=== PATIENT | female | born 1975 | race American Indian/Alaskan Native ===

== ENCOUNTER 2020-02-16 09:03 | Emergency (ER) | payer SELFPAY ==
[2020-02-16 09:24] VITALS: BP 135/88
[2020-02-16] MEDS ORDERED: ACETAMINOPHEN 500 MG TAB PO ONE (10:49)
--- NOTE | 2020-02-16 10:51 | Emergency Department Report ---
Blank Doc - Documentation Documentation: [id number] female that presents with fever, body aches, cough, n/v, and SOB. This initial assessment/diagnostic orders/clinical plan/treatment(s) is/are subject to change based on patient's health status, clinical progression and re- assessment by fellow clinical providers in the ED. Further treatment and workup at subsequent clinical providers discretion. Patient/guardians urged not to elope from the ED as their condition may be serious if not clinically assessed and managed. Initial orders include: 1- Patient sent to [facility] for further evaluation and treatment 2- labs 3- CXR
--- NOTE | 2020-02-16 11:15 | XRay Report ---
CHEST 2 VIEWS INDICATION / CLINICAL INFORMATION: Cough, fever, chills, body aches, weakness, fatigue, nausea, vomiting and diarrhea for one week. COMPARISON: None available. FINDINGS: SUPPORT DEVICES: None. HEART / MEDIASTINUM: The heart size and pulmonary vasculature are normal. LUNGS / PLEURA: No significant pulmonary or pleural abnormality. No pneumothorax. ADDITIONAL FINDINGS: No significant additional findings. IMPRESSION: No acute findings. There is no evidence of pneumonia. Signer Name: Torrey Sagastume MD Signed: 02/16/2020 11:11 AM Workstation Name: [id number]
[2020-02-16 12:20] LABS: Basophils % (Auto) 0.6 % (0.0-1.8); Eosinophils % (Auto) 0.1 % (0.0-4.3); Hematocrit 46.6 % (30.3-42.9); Hemoglobin 15.5 gm/dl (10.1-14.3); Lymphocytes # (Auto) 1.3 K/mm3 (1.2-5.4); Lymphocytes % (Auto) 32.5 % (13.4-35.0); Mean Corpuscular HGB Conc 33 % (30-34); Mean Corpuscular Volume 93 fl (79-97); Monocytes # (Auto) 0.5 K/mm3 (0.0-0.8); Monocytes % (Auto) 11.9 % (0.0-7.3); Platelet Count 185 K/mm3 (140-440); Red Blood Count 5.02 M/mm3 (3.65-5.03); Red Cell Distribution Width 14.5 % (13.2-15.2)
[2020-02-16 12:30] LABS: BUN/Creatinine Ratio 9; Blood Urea Nitrogen 7 mg/dL (7-17); Calcium 9.3 mg/dL (8.4-10.2); Hemolysis Index 5
--- NOTE | 2020-02-16 14:22 | Emergency Department Report ---
- General Chief Complaint: Fever Stated Complaint: FEVER Time Seen by Provider: 02/16/20 10:48 Source: patient, family Mode of arrival: Ambulatory Limitations: No Limitations - History of Present Illness Initial Comments: Patient is a 44-year-old female presents emergency room with complaints of URI symptoms that began a week ago. She has associated fever, chills, mild occasional dry cough. She states initially she had vomiting and diarrhea but that has since improved. She states her symptoms have felt better after taking TheraFlu. She denies any known sick contact. She states that she did travel to [place]. She denies any chest pain or shortness of breath. She has a past medical history of seizure and hypertension. No allergies to medications. 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 Absent: respiratory distress, wheezes, rales, rhonchi, stridor, chest wall tenderness, accessory muscle use, decreased breath sounds, prolonged expiratory - Cardiovascular Cardiovascular Exam: Present: regular rate, normal rhythm, normal heart sounds. Absent: systolic murmur, diastolic murmur, rubs, gallop - Neurological Exam Neurological exam: Present: alert, oriented X3 - Psychiatric Psychiatric exam: Present: normal affect, normal mood - Skin Skin exam: Present: warm, dry, intact ED Course Vital Signs 02/16/20 02/16/20 02/16/20 09:07 10:50 10:55 Temperature 100.1 F H 100.9 F H Pulse Rate 105 H Respiratory 20 18 Rate Blood Pressure 135/88 O2 Sat by Pulse 97 Oximetry 02/16/20 14:26 Temperature 99.1 F Pulse Rate 79 Respiratory 16 Rate Blood Pressure O2 Sat by Pulse 100 Oximetry ED Medical Decision Making - Lab Data Result diagrams: 02/16/20 11:25 02/16/20 11:24 Lab Results 02/16/20 02/16/20 Range/Units 11:24 11:25 WBC 3.9 L (4.5-11.0) K/mm3 RBC 5.02 (3.65-5.03) M/mm3 Hgb 15.5 H (10.1-14.3) gm/dl Hct 46.6 H (30.3-42.9) % MCV 93 (79-97) fl MCH 31 (28-32) pg MCHC 33 (30-34) % RDW 14.5 (13.2-15.2) % Plt Count 185 (140-440) K/mm3 Lymph % (Auto) 32.5 (13.4-35.0) % Edwards % (Auto) 11.9 H (0.0-7.3) % Eos % (Auto) 0.1 (0.0-4.3) % Baso % (Auto) 0.6 (0.0-1.8) % Lymph # 1.3 (1.2-5.4) K/mm3 Edwards # 0.5 (0.0-0.8) K/mm3 Eos # 0.0 (0.0-0.4) K/mm3 Baso # 0.0 (0.0-0.1) K/mm3 Seg Neutrophils % 54.9 (40.0-70.0) % Seg Neutrophils # 2.2 (1.8-7.7) K/mm3 Sodium 137 (137-145) mmol/L Potassium 3.6 (3.6-5.0) mmol/L Chloride 93.3 L (98-107) mmol/L Carbon Dioxide 29 (22-30) mmol/L Anion Gap 18 mmol/L BUN 7 (7-17) mg/dL Creatinine 0.8 (0.7-1.2) mg/dL Estimated GFR > 60 ml/min BUN/Creatinine Ratio 9 % Glucose 112 H (65-100) mg/dL Calcium 9.3 (8.4-10.2) mg/dL - Radiology Data Radiology results: report reviewed CHEST 2 VIEWS INDICATION / CLINICAL INFORMATION: Cough, fever, chills, body aches, weakness, fatigue, nausea, vomiting and diarrhea for one week. COMPARISON: None available. FINDINGS: SUPPORT DEVICES: None. HEART / MEDIASTINUM: The heart size and pulmonary vasculature are normal. LUNGS / PLEURA: No significant pulmonary or pleural abnormality. No pneumothorax. ADDITIONAL FINDINGS: No significant additional findings. IMPRESSION: No acute findings. There is no evidence of pneumonia. Signer Name: Torrey Sagastume MD Signed: 02/16/2020 11:11 AM Workstation Name: [id number] Transcribed By: RT Dictated By: Torrey Sagastume MD Electronically Authenticated By: Torrey Sagastume MD Signed Date/Time: 02/16/20 1111 DD/ 1110 TD/TT: - Medical Decision Making Patient is a 44-year-old female presents emergency room with complaints of URI symptoms that began a week ago. She has associated fever, chills, mild occasional dry cough. She states initially she had vomiting and diarrhea but that has since improved. She states her symptoms have felt better after taking TheraFlu. She denies any known sick contact. She states that she did travel to [place]. She denies any chest pain or shortness of breath. She has a past medical history of seizure and hypertension. No allergies to medications. Initial vitals with fever elevated heart rate, patient given Tylenol and completely resolved. Labs are stable. Chest x-ray with no acute process. Ambulated by EMT and maintain sats of 100% on room air. Patient is presenting with URI symptoms during a COVID-19 pandemic, there is a possibility as patient is presenting with similar symptoms, she has no signs of infiltrates on x-ray, her labs are normal, she is not hypoxic, discussed in detail with patient very strict return precautions, discussed reexamination in 2 days, discussed self quarantine. Patient does not meet inpatient criteria or criteria for hospital COVID-19 testing. Advised pt Please increase your fluid intake over the next several days. May take Tylenol as needed for fever or body aches. May take xtjl-jac-cospguc cold symptom relief medication such as Mucinex or TheraFlu. Get plenty of rest. Follow-up with a primary care doctor for reexamination in 2-3 days. Return to emergency room immediately for any new or worsening symptom s including but not limited to difficulty breathing, shortness of breath, severe chest pain, unable to tolerate by mouth intake, etc. Please self quarantine for 2 weeks from the onset of your symptoms. Please do not go out in public. If you are around others at home please wear a mask. If you need to cough or sneeze please do so in a napkin and immediately throw it away and immediately wash your hands. Wash your hands frequently. Wipe everything down. Recommend for you to get COVID-19 testing, may have this done at primary care doctor, health department, [facility] testing centers. Critical care attestation.: If time is entered above; I have spent that time in minutes in the direct care of this critically ill patient, excluding procedure time. ED Disposition Clinical Impression: Viral syndrome Disposition: TO HOME OR SELFCARE Is pt being admited?: No Does the pt Need Aspirin: No Condition: Stable Instructions: COVID-19, Viral Syndrome (ED) Additional Instructions: Please increase your fluid intake over the next several days. May take Tylenol as needed for fever or body aches. May take fiuf-xzv-lltmjcy cold symptom relief medication such as Mucinex or TheraFlu. Get plenty of rest. Follow-up with a primary care doctor for reexamination in 2-3 days. Return to emergency room immediately for any new or worsening symptoms including but not limited to difficulty breathing, shortness of breath, severe chest pain, unable to tolerate by mouth intake, etc. Please self quarantine for 2 weeks from the onset of your symptoms. Please do not go out in public. If you are around others at home please wear a mask. If you need to cough or sneeze please do so in a napkin and immediately throw it away and immediately wash your hands. Wash your hands freq uently. Wipe everything down. Recommend for you to get COVID-19 testing, may have this done at primary care doctor, health department, [facility] testing centers. Referrals: SAYRA AGUILLON MD [Staff Physician] - 2-3 Days [facility] [Provider Group] - 2-3 Days [facility] [Outside] - 2-3 Days [facility] [Outside] - 2-3 Days Time of Disposition: 14:21 Print Language: DIVEHI
== END 2020-02-16 14:33 | disposition home or self-care (01) ==
LOC: ED 09:03
DX: B34.9 Viral infection, unspecified (principal); F17.200 Nicotine dependence, unspecified, uncomplicated; F12.10 Cannabis abuse, uncomplicated; Z85.43 Personal history of malignant neoplasm of ovary; Z98.890 Other specified postprocedural states
CPT/HCPCS: 36415; 71046; 80048; 85025

== ENCOUNTER 2020-10-03 12:36 | Emergency (ER) | payer MEDICAID ==
[2020-10-03] MEDS ORDERED: cefTRIAXone/NS 1 GM/50 ML 1 GM/50 ML BAG IV ONE ×2 (13:24→16:43)
--- NOTE | 2020-10-03 13:25 | Emergency Department Report ---
ED Eye Problem HPI - General Chief complaint: Eye Problems Stated complaint: LEFT SWOLLEN EYE Time Seen by Provider: 10/03/20 13:15 Source: patient Mode of arrival: Ambulatory Limitations: No Limitations - History of Present Illness Initial comments: 44 yr old female with pmhx of ovarian CA (dx 2006) currently in remission, HTN and seizure d/o presents to ED with c/o redness, pain and swelling to left lower lid. She states it started about 2 days ago after she was cleaning mold in her appartment. She does not recall getting anything in her eye. She state was itching at first but then became painful. She reports mild pain with movement of left eyeball. She reports mild clear drainage from left eye with matting and crusting. She reports mild blurry vision. She denies any fever or chills. She denies injury to eye or insect bites. She does not wear glasses or contacts. She denies any grinding or welding. chief complaint: other (left lower lid redness and swelling ) -: Gradual (1-2 days ago ) Onset Description: gradual Location: left eye Place: home - Related Data Allergies Allergy/AdvReac Type Severity Reaction Status Date / Time No Known Allergies Allergy Verified 10/03/20 12:56 ED Review of Systems ROS: Stated complaint: LEFT SWOLLEN EYE Other details as noted in HPI Comment: All other systems reviewed and negative Eyes: eye pain, eye discharge, other (Left lower lid swelling, redness and pain) Respiratory: denies: cough, shortness of breath, wheezing Cardiovascular: denies: chest pain, palpitations Neurological: denies: headache, weakness, paresthesias ED Past Medical Hx - Past Medical History Hx Hypertension: Yes Hx CVA: Yes Additional medical history: 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 Absent: scleral icterus, conjunctival injection Pupils: Present: normal accommodation - Expanded Eye Exam Expanded Eyelids: Normal Inspection: Right, Stye: Left (Left lower lid; very ttp ), Erythema: Left (lower lid; No streaking redness), Swelling: Left (lower lid) Pupils: Regular, Round: Bilateral Sclera/Conjunctival: Normal Inspection: Bilateral - Neck Neck exam: Present: normal inspection, full ROM - Respiratory Respiratory exam: Present: normal lung sounds bilaterally. Absent: respiratory distress - Cardiovascular Cardiovascular Exam: Present: regular rate, normal rhythm, normal heart sounds - Neurological Exam Neurological exam: Present: alert, oriented X3, CN II-XII intact, normal gait - Psychiatric Psychiatric exam: Present: normal affect, normal mood - Skin Skin exam: Present: intact ED Course Vital Signs 10/03/20 12:58 Temperature 98.4 F Pulse Rate 76 Respiratory 20 Rate Blood Pressure 174/115 O2 Sat by Pulse 100 Oximetry ED Medical Decision Making - Lab Data Result diagrams: 10/03/20 13:33 10/03/20 13:33 - Radiology Data Radiology results: report reviewed Patient: ANAMIKA MALAVE MR#: [id number] : 1975 Acct:[id number] Age/Sex: 44 / F ADM Date: 10/03/20 Loc: ED Attending Dr: Ordering Physician: ALONSO OQUENDO Date of Service: 10/03/20 Procedure(s): CT orbits/ear/fossa wo/w con Accession Number(s): [id number] cc: ALONSO OQUENDO CT orbits/ear/fossa wo/w con INDICATION: Periorbital cellulitis. TECHNIQUE: CT orbits. All CT scans at this location are performed using CT dose reduction for ALARA by means of automated exposure control. COMPARISON: None. FINDINGS: Orbits: Left periorbital soft tissues with thickening. There is minimal fat stranding extending posterior the the septum for example along the superior posterior aspect of the orbit as seen on image 162 series 4. Associated mild asymmetrical hyperemia of the left lacrimal gland. No drainable organized collection. Facial bones:Facial bones are intact without fracture. Mandibular condyles are well-seated within the glenoid fossa of the temporal mandibular joint. Sinuses: Paranasal sinuses and mastoid air cells are essentially clear. Additional findings:No other significant abnormality. IMPRESSION: 1. Left periorbital cellulitis with findings concerning for mild postseptal cellulits. Signer Name: Justin Nolasco MD Signed: 10/03/2020 4:18 PM Workstation Name: [id number] Transcribed By: CS Dictated By: Justin Nolasco MD Electronically Authenticated By: Justin Nolasco MD Signed Date/Time: 10/03/20 1618 DD/ 1600 TD/TT: - Medical Decision Making 44 yr old female with pmhx of ovarian CA (dx 2007) currently in remission, HTN and seizure d/o presents to ED with c/o redness, pain and swelling to left lower lid. She states it started about 2 days ago after she was cleaning mold in her appartment. She does not recall getting anything in her eye. She state was itching at first but then became painful. She reports mild pain with movement of left eyeball. She reports mild clear drainage from left eye with matting and crusting. She reports mild blurry vision. She denies any fever or chills. She denies injury to eye or insect bites. She does not wear glasses or contacts. She denies any grinding or welding. Visual acute: L eye 20/50, R eye 20/20 and both eye 20/15 all without co rrection. 1656: Labs reviewed, CBC show nl white count, CMP unremarkable. CT orbits with IV contrast shows Left periorbital cellulitis with findings concerning for mild postseptal cellulits. Discussed case with Dr Cm (Dr Doran left for the day) and he recommend consulting with ophthamologist at [facility]. 1713: Discussed case with Dr Roca, cognos developer on-call at [facility]. She states that unfortunately she does not feel comfortable giving recommendations over the phone in regards to treatment plans for patient who are at the hospital that she is not currently credentialed. Patient will need to be transferred for better assessment and decision making. Patient will be ER to ER transfer to [facility] and she can be consulted. 1724: Discussed lab and CT results with patient. Discussed the reason for transfer with patient. She expressed understanding of instructions and agree with plan. Patient currently stable at this time. Critical care attestation.: If time is entered above; I have spent that time in minutes in the direct care of this critically ill patient, excluding procedure time. ED Disposition Clinical Impression: Periorbital cellulitis of left eye, Stye Disposition: DC/TX-70 ANOTHER TYPE HLTHCARE Is pt being admited?: No Does the pt Need Aspirin: No Condition: Stable
[2020-10-03 14:18] LABS: Alanine Aminotransferase 14 units/L (7-56); Albumin 4.3 g/dL (3.9-5); BUN/Creatinine Ratio 11; Blood Urea Nitrogen 9 mg/dL (7-17); Calcium 9.7 mg/dL (8.4-10.2); Hemolysis Index 6
[2020-10-03 14:33] LABS: Basophils % (Auto) 0.2 % (0.0-1.8); Eosinophils # (Auto) 0.1 K/mm3 (0.0-0.4); Eosinophils % (Auto) 1.4 % (0.0-4.3); Hematocrit 40.6 % (30.3-42.9); Hemoglobin 13.9 gm/dl (10.1-14.3); Lymphocytes # (Auto) 3.6 K/mm3 (1.2-5.4); Lymphocytes % (Auto) 41.1 % (13.4-35.0); Mean Corpuscular HGB Conc 34 % (30-34); Mean Corpuscular Volume 94 fl (79-97); Monocytes # (Auto) 0.5 K/mm3 (0.0-0.8); Monocytes % (Auto) 5.7 % (0.0-7.3); Platelet Count 210 K/mm3 (140-440); Red Blood Count 4.33 M/mm3 (3.65-5.03); Red Cell Distribution Width 14.3 % (13.2-15.2)
[2020-10-03] MEDS ORDERED: diphenhydrAMINE 25 MG CAP PO ONE (16:02)
[2020-10-03] MEDS ORDERED: diphenhydrAMINE 50 MG/ML VIAL IV ONE (16:14)
--- NOTE | 2020-10-03 16:22 | Cat Scan Report ---
CT orbits/ear/fossa wo/w con INDICATION: Periorbital cellulitis. TECHNIQUE: CT orbits. All CT scans at this location are performed using CT dose reduction for ALARA b y means of automated exposure control. COMPARISON: None. FINDINGS: Orbits: Left periorbital soft tissues with thickening. There is minimal fat stranding extending poste rior the the septum for example along the superior posterior aspect of the orbit as seen on image 162 series 4. Associated mild asymmetrical hyperemia of the left lacrimal gland. No drainable organized collection. Facial bones:Facial bones are intact without fracture. Mandibular condyles are well-seated within the glenoid fossa of the temporal mandibular joint. Sinuses: Paranasal sinuses and mastoid air cells are essentially clear. Additional findings:No other significant abnormality. IMPRESSION: 1. Left periorbital cellulitis with findings concerning for mild postseptal cellulits. Signer Name: Justin Nolasco MD Signed: 10/03/2020 4:18 PM Workstation Name: [id number]
[2020-10-03] MEDS ORDERED: KETOROLAC 30 MG/1 ML INJ IV ONE (16:55)
[2020-10-03 18:42] VITALS: BP 160/92
== END 2020-10-03 18:55 | disposition other institution (70) ==
LOC: ED 12:36
DX: L03.213 Periorbital cellulitis (principal); H00.015 Hordeolum externum left lower eyelid; I10 Essential (primary) hypertension; F12.10 Cannabis abuse, uncomplicated; Z86.73 Personal history of transient ischemic attack (TIA), and cerebral infarction without residual deficits; Z98.890 Other specified postprocedural states
CPT/HCPCS: 36415; 70482; 80053; 85025; 96365; 96366; 96375; 99285; J0696; J1200; J1885; Q9967